=== PATIENT | female | born 1995 | race Caucasian/White ===

== ENCOUNTER 2016-12-29 15:30 | Emergency (ER) | payer OTHER | END 2016-12-29 18:12 | disposition home or self-care (01) | LOC: ER1 15:30 | DX: R22.0 Localized swelling, mass and lump, head (principal); T39.315A Adverse effect of propionic acid derivatives, initial encounter; J45.901 Unspecified asthma with (acute) exacerbation; F17.200 Nicotine dependence, unspecified, uncomplicated | CPT/HCPCS: 96365; 96375; 99283; J1200; J2930 ==

== ENCOUNTER 2017-01-17 17:48 | Emergency (ER) | payer OTHER | END 2017-01-17 20:24 | disposition left against medical advice (07) | LOC: ER1 17:48 | DX: Z53.21 Procedure and treatment not carried out due to patient leaving prior to being seen by health care provider (principal) ==

== ENCOUNTER → 2020-12-18 | Outpatient (CLI) | payer OTHER | LOC: KOH-I 12:36 | DX: J20.9 Acute bronchitis, unspecified (principal); R05 Cough; R06.02 Shortness of breath | CPT/HCPCS: 71046 ==

== ENCOUNTER 2021-02-21 01:23 | Emergency (ER) | payer OTHER ==
[2021-02-21 02:48] LABS: HEMOGLOBIN 13.6 gm/dl (12.3-15.3); RED BLOOD COUNT 5.14 M/UL (4.00-5.10); WHITE BLOOD COUNT 4.1 K/UL (4.5-11.0)
[2021-02-21 03:09] LABS: BUN/CREATININE RATIO 19 (0-10)
== END 2021-02-21 04:06 | disposition home or self-care (01) ==
LOC: ER1 01:23
PROVIDERS: Student in an Organized Health Care Education/Training Program
DX: U07.1 COVID-19 (principal); I10 Essential (primary) hypertension; J45.909 Unspecified asthma, uncomplicated; Z88.6 Allergy status to analgesic agent
CPT/HCPCS: 80053; 82550; 82553; 83874; 84484; 84702; 85025; 93005; 99285

== ENCOUNTER 2022-02-12 14:24 | Emergency (ER) | payer OTHER ==
[2022-02-12 15:09] LABS: HEMOGLOBIN 14.1 gm/dl (12.3-15.3); RED BLOOD COUNT 5.29 M/UL (4.00-5.10); WHITE BLOOD COUNT 15.5 K/UL (4.5-11.0)
[2022-02-12 15:29] LABS: BUN/CREATININE RATIO 10 (0-10)
== END 2022-02-12 15:37 | disposition other institution (70) ==
LOC: ER1 14:24
PROVIDERS: Family Medicine
DX: R20.9 Unspecified disturbances of skin sensation (principal); Z23 Encounter for immunization
CPT/HCPCS: 0241U; 73110; 80053; 85027; 85610; 86850; 86900; 86901; 90471; 90715; 96374; 96375; 99284; G0480; J0690; J2270; J2405

== ENCOUNTER 2022-04-17 14:46 | Emergency (ER) | payer OTHER ==
[2022-04-17 16:47] LABS: HEMOGLOBIN 10.7 gm/dl (12.3-15.3); RED BLOOD COUNT 4.6 M/UL (4.00-5.10); WHITE BLOOD COUNT 12.9 K/UL (4.5-11.0)
[2022-04-17 17:05] LABS: BUN/CREATININE RATIO 15 (0-10)
[2022-04-17] MEDS ORDERED: IBUPROFEN800 MG PO (18:54)
[2022-04-17] MEDS ORDERED: CLEOCIN HCL150 MG PO (18:54)
== END 2022-04-17 19:25 | disposition home or self-care (01) ==
LOC: ER1 14:46
PROVIDERS: Physician Assistant
DX: I89.8 Other specified noninfective disorders of lymphatic vessels and lymph nodes (principal); I10 Essential (primary) hypertension; J45.909 Unspecified asthma, uncomplicated; F17.200 Nicotine dependence, unspecified, uncomplicated; K02.9 Dental caries, unspecified
CPT/HCPCS: 70491; 80053; 84439; 84443; 85025; 86403; 87081; 87880; 99284; Q9967